=== PATIENT | male | born 1965 | race Caucasian/White ===

== ENCOUNTER 2021-08-27 01:40 | Emergency (ER) | payer MEDICAID ==
[~2021-08-27] VITALS: Ht 182.9 cm; Wt 79.4 kg
[2021-08-27] MEDS ORDERED: IV NORMAL SALINE 1000 ML BAG IV ONE (01:45)
[2021-08-27] MEDS ORDERED: HYDROMORPHONE 1 MG/1 ML DISP.SYRIN IV ONE ×2 (01:45→02:45)
[2021-08-27] MEDS ORDERED: PROCHLORPERAZINE EDISYLATE 10 MG/2 ML VIAL IV ONE (01:45)
[2021-08-27] MEDS ORDERED: ONDANSETRON 4 MG/2 ML VIAL IV ONE (01:45)
--- NOTE | 2021-08-27 01:51 | NUR ---
Patient BIB [facility] c/o RLQ pain and N/V
--- NOTE | 2021-08-27 01:52 | NUR ---
Dr Montaño in room for LUDIVINA
[2021-08-27 02:00] LABS: HEMATOCRIT 42.4 % (36.7-47.1); MEAN CORPUSCULAR HEMOGLOBIN 32.7 uug (23.8-33.4); MEAN CORPUSCULAR VOLUME 92.6 fL (73.0-96.2); PLATELET COUNT (AUTO) 196 K/uL (152-348)
[2021-08-27] MEDS ORDERED: PROCHLORPERAZINE EDISYLATE 10 MG/2 ML VIAL ONE (02:05)
[2021-08-27] MEDS ORDERED: HYDROMORPHONE 1 MG/1 ML DISP.SYRIN ONE ×2 (02:05→02:45)
[2021-08-27] MEDS ORDERED: ONDANSETRON 4 MG/2 ML VIAL ONE (02:05)
[2021-08-27 02:07] LABS: CREATININE 1.3 mg/dL (0.6-1.3); POTASSIUM 3.7 mmol/L (3.5-5.1)
[2021-08-27 02:12] LABS: BILIRUBIN,DIRECT 0.2 mg/dL (0.0-0.2); BILIRUBIN,TOTAL 0.7 mg/dL (0.2-1.0); TOTAL PROTEIN, SERUM 7.5 g/dL (6.4-8.2)
[2021-08-27] MEDS ORDERED: IOHEXOL 300MG/ML 100 ML INFUS..BTL ONE ×2 (02:47→14:48)
[2021-08-27] MEDS ORDERED: SWABABLE VALVE TRANSFER SET EA MC ONE ×2 (02:47→14:48)
[2021-08-27] MEDS ORDERED: IV NORMAL SALINE 250 ML IV ONE ×2 (02:47→14:48)
[2021-08-27 03:15] LABS: *BILIRUBIN,URIN NEGATIVE (NEGATIVE); *BLOOD, URINE 3+ (NEGATIVE); *COLOR,URINE YELLOW (YELLOW); *KETONES,URINE 4+ (NEGATIVE); *UROBILINOGEN,URINE 0.2 E.U./dl (NORMAL); LEUKOCYTE ESTERASE ,URINE NEGATIVE (NEGATIVE); NITRITE, URINE NEGATIVE (NEGATIVE); UGLUCOSE NEGATIVE (NEGATIVE)
[2021-08-27 03:32] LABS: *CLARITY,URINE HAZY (CLEAR)
[2021-08-27 03:33] LABS: BACTERIA,URINE NONE SEEN /HPF (NONE SEEN); RBC,URINE 50-80 /HPF (0-3); SQUAMOUS EPITHELIAL CELL,UR FEW /HPF (NONE SEEN); WBC,URINE 0-3 /HPF (0-3)
[2021-08-27] MEDS ORDERED: IV NS 1000 ML 1,000 ML IV ONE (04:15)
[2021-08-27] MEDS ORDERED: MAGNESIUM SULFATE/D5W 200 ML ONE (04:16)
[2021-08-27] MEDS: MAGNESIUM SULFATE/D5W 100 ML IV SCH ×4 (04:25→05:36)
[2021-08-27] MEDS ORDERED: KETOROLAC TROMETHAMINE 30 MG INJ ONE (05:10)
[2021-08-27] MEDS ORDERED: OXYC-128 PO (05:12)
[2021-08-27] MEDS ORDERED: PROC-11 PO (05:12)
[2021-08-27] MEDS ORDERED: KETOROLAC TROMETHAMINE 30 MG INJ IVP ONE (05:15)
--- NOTE | 2021-08-27 05:59 | NUR ---
Patient discharged to home in stable condition. Written and verbal after care instructions given. Patient verbalizes understanding of instructions. Stressed follow up or return to ER for worsening s/s. Patient is A/Ox4, no SOB, no distress, no CP noted. Patient is able to ambulate steady gait
[2021-08-27 06:00] VITALS: BP 117/63
== END 2021-08-27 06:01 | disposition home or self-care (01) ==
LOC: ER 01:58
DX: N28.89 Other specified disorders of kidney and ureter (principal); N13.2 Hydronephrosis with renal and ureteral calculous obstruction; R03.0 Elevated blood-pressure reading, without diagnosis of hypertension; I45.10 Unspecified right bundle-branch block
CPT/HCPCS: 36415; 74177; 80048; 80076; 81001; 83605 ×2; 83690; 83735; 85025; 93005; 96365; 96375; 96376; 99285; J0780; J1170 ×2; J1885; J2405; J3475; Q9967 ×2; A4663; J7040